=== PATIENT | female | born 1980 | race Two or more races ===

== ENCOUNTER → 2017-01-09 | Outpatient (CLI) | payer MEDICARE ==
[2015-02-03 18:03] VITALS: BP 109/57
[~2017-01-09] MED LIST: HYDR-971 PO; IBUP800T19 PO; OLAN1CAP3 PO
--- NOTE | 2017-01-10 08:08 | RAD ---
Lumbar spine, 5 views, 01/09/2017: History: Chronic back pain, degenerative disc disease The lumbar vertebral heights are well-maintained. There is mild disc space narrowing and marginal spurring at L5-S1. There are mild degenerative changes involving the facet joints in the lower lumbar spine. No fracture or dislocation is identified. The paraspinous soft tissues are unremarkable. IMPRESSION: 1. Mild degenerative change. 2. No acute abnormality is detected.
== END | disposition home or self-care (01) ==
LOC: RAD 18:08
PROVIDERS: ATTEND Family Medicine
DX: M51.36 Other intervertebral disc degeneration, lumbar region (principal); M47.896 Other spondylosis, lumbar region
CPT/HCPCS: 72110

== ENCOUNTER → 2019-02-05 | Outpatient (CLI) | payer MEDICARE ==
[2015-02-03 18:03] VITALS: BP 109/57
[~2019-02-05] MED LIST changes: +HYDR-3165 PO; -HYDR-971 PO
[2019-02-05 18:51] LABS: ALBUMIN 3.5 g/dL (3.4-5.0); ALBUMIN/GLOBULIN RATIO 1.1 (1.0-1.7); CALCIUM 8.5 mg/dL (8.5-10.1); CREATININE 0.6 mg/dL (0.6-1.0); GFR 111.9; TOTAL BILIRUBIN 0.4 mg/dL (0.2-1.0); TOTAL PROTEIN 6.6 g/dL (6.4-8.2)
== END | disposition home or self-care (01) ==
LOC: LAB 16:30
PROVIDERS: ATTEND Psychiatry & Neurology Psychiatry
DX: E31.8 Other polyglandular dysfunction (principal)
CPT/HCPCS: 36415; 80053; 80178

== ENCOUNTER 2020-05-20 16:25 | Emergency (ER) | payer MEDICARE, OTHER ==
[~2020-05-20] VITALS: Ht 167.6 cm; Wt 63.6 kg
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
[2020-05-20] MEDS ORDERED: IOHEXOL 350 MG/ML 100 ML VIAL. IV ONE (16:45)
[2020-05-20 16:52] VITALS: BP 132/79
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
== END 2020-05-20 17:59 | disposition home or self-care (01) ==
LOC: ER 16:25
DX: R10.12 Left upper quadrant pain (principal); M79.605 Pain in left leg; Z88.0 Allergy status to penicillin; Z88.5 Allergy status to narcotic agent; Z88.8 Allergy status to other drugs, medicaments and biological substances; V43.52XA Car driver injured in collision with other type car in traffic accident, initial encounter; Y93.I9 Activity, other involving external motion; Y92.89 Other specified places as the place of occurrence of the external cause; Y99.8 Other external cause status
CPT/HCPCS: 71275; 74174; 81025; 99285; Q9967